=== PATIENT | female | born 1935 | race Caucasian/White ===

== ENCOUNTER 2017-05-27 02:01 | Inpatient (IN) | payer MEDICARE, BC ==
[~2017-05-27] VITALS: Ht 149.9 cm; Wt 69.0 kg
--- NOTE | ~2017-05-27 | HP ---
PATIENT'S NAME: ED HOU [facility] AGE: 82 Y [address] ROOM: [address] [address] LOCATION[facility] ADMIT DATE: 05/27/2017 History & Physical DISCHARGE DATE: FAMILY PHYSICIAN: PHYSICIAN, UNKNOWN ATTENDING PHYSICIAN: PATRICIA ESCOBEDO DATE OF SERVICE: CHIEF COMPLAINT: Chest pain, shortness of breath, diaphoresis, and palpitation with irregular heartbeat. HISTORY OF PRESENT ILLNESS: This is an 82-year-old female who says that last night around 10 p.m. while she was watching a movie she felt substernal chest pain about 8/10 intensity with radiation to bilateral shoulders associated with diaphoresis, dyspnea, and palpitations with sensation of irregular heartbeats. The patient's daughter was at home and gave her 1 full- dose aspirin but did not relieve any chest pain. Therefore, patient was brought to the emergency room at [facility]. Over there, EKG was performed and showed atrial fibrillation with RVR with heart rate of 137. Troponin, CPK, CK-MB, the first set was normal. The patient was given Cardizem bolus followed by drip and also was put on IV heparin drip and got 1 dose IV Lopressor 5 mg and was later sent over here for further care. On-call chief cook was already notified by the transfer facility's medical provider and plan will be managing her chest pain and atrial fibrillation with RVR at our facility. The patient states that she has never been diagnosed with any heart problems and never been told she has any heart failure, atrial fibrillation, myocardial infarction, or anything cardiac related except hypertension. She also denies ever having chest pain before. However, she did say that about roughly 2 weeks ago she had some insect bites and she was given prednisone for itchiness relief and she has been having intermittent plapitations of irregular heartbeats. She thinks that prednisone might be the trigger of those irregular heartbeats. REVIEW OF SYSTEMS: As mentioned in history of present illness. All other systems were reviewed and they were negative except those mentioned in the history of present illness. PAST MEDICAL HISTORY: 1. Hypertension. 2. Hyperlipidemia. [facility] A[facility]: 82 Y [address] ROOM: [address] [place], [place] [address] LOC[facility]: [facility] ADMIT DATE: 05/27/2017 History & Physical DISCHARGE DATE: FAMILY PHYSICIAN: PHYSICIAN, UNKNOWN ATTENDING PHYSICIAN: PATRICIA ESCOBEDO 3. Gastroesophageal reflux disease. 4. History of ovarian cancer, status post chemotherapy completed 4 years ago and she still has the port a cath on her left chest. ALLERGIES: PENICILLIN CAUSES HIVES, LEVAQUIN UNKNOWN REACTION, AND LATEX CAUSES ITCHINESS. HOME MEDICATIONS: Currently, it is being reconciled. The patient does take aspirin at home, baby dose, but she is not on any blood thinner. SOCIAL HISTORY: The patient denies any cigarette, alcohol, or any illegal drug use. FAMILY HISTORY: Father from myocardial infarction at age 60;s and mother at old age from unknwon cause and also had diabetes type 2. PAST SURGICAL HISTORY: Knee surgery and hysterectomy. PHYSICAL EXAMINATION: VITAL SIGNS: Temperature 98, heart rate 66, respirations 18, blood pressure 143/65, and saturation 95% on room air. GENERAL APPEARANCE: Alert and oriented x3, in no acute distress. HEENT: Pupils are equally round and reactive to light. Extraocular muscles intact. Anicteric sclerae. Nasal turbinates are normal bilaterally. Moist oral mucosa. NECK: No JVD. CARDIOVASCULAR: Regular rate and rhythm. No murmur, no rubs, no gallops. Normal S1, S2. RESPIRATORY: Clear. No rhonchi, no rales, no wheezing, no crackles. ABDOMEN: Soft, obese, nontender, nondistended, bowel sounds present, no mass. EXTREMITIES: No edema in upper or lower extremities. NEUROLOGIC: Grossly nonfocal. SKIN: No ulcer, no rash, no cyanosis. LABORATORY DATA: Troponin 0.055, pro-BNP 399, CPK 66, CK-MB 2.8. White blood cell 12.3, hemoglobin 14, hematocrit 40.4, platelet 163, glucose 106, BUN 23, and creatinine 0.8. Sodium 142, potassium 3.7, chloride 105, CO2 29, calcium 8.6, total protein 6.1, albumin 3.1, AST 16, ALT 28, alkaline phosphatase 61, total bilirubin 0.3, magnesium 1.9, anion gap 11.7, LDL 61, HDL 66, total cholesterol 144, and triglycerides 88. INR and PTT pending. Hemoglobin A1c PATIENT'S NAME: ED HOU [facility] AGE: 82 Y [address] ROOM: [address] [place] [address] LOCATION: [facility] ADMIT DATE: 05/27/2017 History & Physical DISCHARGE DATE: FAMILY PHYSICIAN: PHYSICIAN, UNKNOWN ATTENDING PHYSICIAN: PATRICIA ESCOBEDO pending. GFR 68. IMAGING STUDIES: 1. Chest x-ray on admission from the outside facility showed no acute infiltrate. Stable elevation of the right hemidiaphragm with possible trace right pleural effusion. Borderline cardiomegaly without overt signs of CHF. 2. EKG from the outside facility, the first one on May 27, 2017, at 12:21 a.m. show heart rate of 137, atrial fibrillation with RVR, and known specific ST-T wave related changes. QRS 74 milliseconds. 3. Repeat EKG at a later time on the same day at 1:45 a.m. still with atrial fibrillation with RVR, heart rate 101, QRS 78, still with some nonspecific ST changes. No obvious ST elevation. 4. Repeat EKG here in our facility on May 27, 2017, at 3:53 a.m. shows sinus rhythm, heart rate of 61 beats per minutes. MT 175 milliseconds, QRS 85 milliseconds, QTc 363 milliseconds. No acute ischemic changes. ASSESSMENT AND PLAN: 1. Chest pain from NSTEMI: Continue intravenous heparin drip per acute coronary syndrome protocol. Continue with p.o. Lopressor, p.o. aspirin, and p.o. Lipitor and if has chest pain, will start intravenous nitroglycerin drip. Echo in the morning. Cardiology consult in the morning. N.p.o. Intravenous fluids for hydration. I will also cycle cardiac enzymes every 6 hours and EKG in AM. 2. New onset atrial fibrillation with RVR: Continue intravenous heparin drip. I will control her atrial fibrillation with Cardizem bolus then drip if she goes back to atrial fibrillation with rvr. In the meantime, I will give her p.o. Lopressor 25 mg p.o. b.i.d.. In addition, I will add intravenous Lopressor p.r.n. for heart rate more than 110 if she goes into atrial fibrillation with rvr. Her [id number] score is high enough to warrant usp anticoagulation due to her age, female sex, and hypertension. For now, continue intravenous heparin drip and defer to Cardiology for choice of long-term anticoagulation. 3. Hypertension: Hold the home medication including amlodipine and also atenolol because we are doing the p.o. Lopressor for now. Continue home lisinopril with holding parameters. 4. Hyperlipidemia: Check lipid panel and change home pravastatin for atorvastatin in the setting of acute coronary syndrome. 5. Gastroesophageal reflux disease: Continue her home PATIENT'S NAME: ED HOU [facility] AGE: 82 Y [address] ROOM: [place] [address] LOC[facility] ADMIT DATE: 05/27/2017 History & Physical DISCHARGE DATE: FAMILY PHYSICIAN: PHYSICIAN, UNKNOWN ATTENDING PHYSICIAN: PATRICIA ESCOBEDO omeprazole 40 mg p.o. daily p.r.n.. Keep the potassium more than 4 and magnesium more than 2. 6. Deep vein thrombosis prophylaxis: She is on heparin drip. 7. She is a full code. Time spent in care on the day of admission 50 minutes spent, where 30 minutes spent on counseling, including going over plan of care in detail with patient and her family members and addressing all their questions and concerns to their satisfaction. The remainder of time was spent on chart review, interview, and physical examination. Further plan will depend on clinical course. PATRICIA ESCOBEDO MD CC/modl /[id number]: [id number] T: [id number] HISTORY & PHYSICAL
--- NOTE | ~2017-05-27 | DS ---
PATIENT'S NAME: ED HOU [facility] AGE: 82 Y [address] ROOM: [address] [place], [place] [address] LOCATION: [facility] ADMIT DATE: 05/27/2017 Discharge Summary DISCHARGE DATE: 05/28/2017 FAMILY PHYSICIAN: Tza Shoemaker MD ATTENDING PHYSICIAN: Flaquito Cross FINAL DIAGNOSES: 1. Atrial fibrillation with a rapid ventricular response. 2. Chest pain. 3. Essential hypertension. 4. Dyslipidemia. REASON FOR ADMISSION: The patient had presented to [place] with atrial fibrillation with a rapid ventricular response with associated chest pain and shortness of breath. She was transferred here for cardiac evaluation. LABORATORY DATA: On admission; her sodium was 142, potassium 3.7, chloride 105, CO2 29, BUN 23, creatinine 0.8. Her alkaline phosphatase was 61, AST 16, ALT 68, cholesterol 144, HDL 66, LDL 61. Her CK on admission was 66, MB 2.8, troponin was 0.055, proBNP 399. Her second troponin was 0.057. Hemoglobin A1c 6.7, TSH 1.7, free T4 1.1. White blood cell count on admit 12.3, hemoglobin 14, hematocrit 40.4, platelet count 163, protime 10.6, INR 1.01. RADIOLOGY DATA: Cardiovascular data and echocardiogram did show that her ejection fraction was 60% to 65%. She had grade 1 diastolic dysfunction, mildly dilated left atrium. Cardiac Lexiscan was read as negative for ischemia. HOSPITAL COURSE: The patient was accepted and transferred, admitted to PCU. She was started on IV heparin. An echocardiogram was obtained. She was started on low-dose Lopressor. Her heart rate was actually controlled at the time of admission. Cardiology was asked to see her and a decision was made to place her on sotalol 80 mg twice daily. It was felt that the chest pain required a stress test. She did undergo a Lexiscan stress test that did return negative. She had converted to sinus rhythm. It was felt that she should continue on the Betapace and a decision was made to place her on Eliquis. Her blood pressure on the night of the was elevated. She had miss her dose of Norvasc that morning and was restarted. On the morning of discharge, her blood pressure was much improved. She ambulated in the halls and felt fine. Decision was made to discharge her home. DISCHARGE INSTRUCTIONS/MEDICATIONS: 1. Eliquis 5 mg twice daily. 2. Pravachol 40 mg at bedtime. 3. Xalatan 1 drop each eye at bedtime. PATIENT'S NAME: ED HOU [facility] AGE: 82 Y [address] ROOM: [place] [address] [facility] ADMIT DATE: 05/27/2017 Discharge Summary DISCHARGE DATE: 05/28/2017 FAMILY PHYSICIAN: Taz Shoemaker MD ATTENDING PHYSICIAN: Flaquito Cross 4. Lopressor 12.5 mg twice daily. 5. Betapace 80 mg twice daily. 6. Amlodipine/benazepril 10/40 1 tablet daily. 7. PreserVision 1 tablet daily. 8. Omeprazole 40 mg daily. 9. Mag oxide 400 mg daily. 10. Lasix 20 mg daily as needed for swelling in her legs. 11. Os-Shiraz with D1 1 tablet daily. This was discussed with her primary care provider, Dr. Taz Shoemaker. She will see Dr. Taz Shoemaker tomorrow morning as already scheduled and will see Dr. Arredondo on June 09. DINH PETER MD LAW/modl /[id number] CC: MD Manish Webster MD d: 05/29/17 1143 t: 06/03/17 1934, DISCHARGE SUMMARY
--- NOTE | ~2017-05-27 | ESTC ---
Cardiac Perfusion Imaging Demographics Patient Name SAVI Santiago Gender Female Patient Number [id number] Race Visit Number [id number] Ethnicity Corporate ID Room Number G6312 Accession Number [id number] Height 59 inches Date of 1935 Weight 151 pounds Interpreting CHANCE Narvaez [place] Date of study 05/27/2017 Physician Abbey Waldrop MD Supervising /ROSITA ARZATE Technologist Laurel Rhoades Ordering Physician Stress automotive service technician Stress ECG Reading Trang Nurse Yousuf Peters RN Physician Jf Rdedy RN Medications Reviewed with Patient prior to Procedure. Procedure Admit Source:Emergency department. Procedure Type: Nuclear Stress Test:Pharmacological, Lexiscan, Cardiolite Stress Test Procedure Start time: 05/27/2017 00:00 Indications: Atrial Fibrillation w/ RVR. Risk Factors The patient risk factors include:former tobacco use, treated hypercholesterolemia, treated hypertension, diet treated diabetes mellitus and dyslipidemia. Conclusions Impression ECG portion of lexiscan stress test is clinically negative for ischemia by diagnostic criteria. Myocardial perfusion imaging is essentially normal. Overall left ventricular systolic function was normal without regional wall motion abnormalities. Calculated LVEF is 78% and TID ratio is 1.16. There are no previous studies for comparison. Stress Protocols Resting ECG sinus bradycardia, non specific T wave abnormality Pre-stress physical exam: Patient assessed by Dr Costello prior to testing. Predicted HR: 136 bpm ECG Findings No ECG changes suggestive of ischemia. Arrhythmias No rhythm abnormality. Symptoms Nausea, palpitations Stress Interpretation ECG portion of stress test is negative for ischemia by diagnostic criteria. Nuclear images are pending. Imaging Results Applied corrections - Motion correction applied High risk findings Summed scores - Summed stress score: 1 - Summed rest score: 3 - Summed difference score: -2 Stress ejection Ejection fraction:78 % EDV :54 ml ESV :12 ml Stroke volume :42 ml LV mass :90 gr Imaging Protocols Rest Stress Isotope:Tc99m Sestamibi IV Isotope: Tc99m Sestamibi IV Isotope dose:12.4 mCi Isotope dose:38.7 mCi Date:05/27/2017 10:12 Date:05/27/2017 12:22 Technique: SPECT Technique: Gated Supine SPECT Supine IV remains in place after procedure. Scan Time:45-60 minutes post injection Procedure Medications - Regadenoson (Lexiscan) 0.4 mg IV over 10-15 sec. I.V. 0.4 mg. Medications administered per verbal order and read back to physician prior to administration. Medical History Admission Data Admission date: 05/27/2017 Admission Time: 03:24 Hospital Status: Inpatient. Signatures dtt: KIARA GORE dtd: 05/27/17 0000 Physician Self Edit
--- NOTE | ~2017-05-27 | ECHO ---
Transthoracic Echocardiography Report (TTE) Demographics Patient Name ED HOU Date of Study 05/27/2017 Patient Number [id number] Visit Number [id number] Date of 1935 Room Number G6312 Accession Number [id number] Gender Female Age 82 year(s) Referring Maria Elena Hammond MD Sales Representative [employer] Mayela Jameson [facility], Physician America Cristobal MD RVT Physician Interpreting Abbey Waldrop In House Cra Physician Supervising Ordering Physician Maria Elena Hammond MD, MD/P Nurse Stress Marker Shipments Conclusions Summary Normal LV/RV size and systolic function. The estimated left ventricular ejection fraction is 60-65%. Diastolic assessment reveals Grade I diastolic dysfunction. The left atrium is moderately dilated. There is mild pulmonary hypertension. The pulmonary pressure (RVSP) is 35 mmHg. Trivial tricuspid regurgitation by color Doppler. Procedure Type of Study TTE procedure:2D Echocardiogram. Procedure Date Date: 05/27/2017 Start: 07:29 AM Study Location: Inpatient Portable Technical Quality: Adequate visualization Indications:Chest pain. Additional Indications:atrial fiberlation rvr Appropriate Use Criteria: 9 Patient Status: Routine Rhythm: Sinus bradycardia HR: 57 bpm BP: 177/80 mmHg M-Mode/2D Measurements LV Diastolic Dimension: 4.6 cm LV Systolic Dimension: 3.04 cm LV Septum Diastolic: 1.05 cm LV PW Diastolic: 1 cm AO Root Dimension: 2.1 cm Cardiac Output: 5.35 l/min AV Cusp Separation: 1.9 cm RV Diastolic Dimension: 2.48 cm LA volume: 49 ml IVC Inspiration: 0.4 cm LVOT: 2.1 cm RV Base: 3.52 cm LVOT VTI: 27.1 cm RV Mid: 2.34 cm LV Stroke volume: 93.82 ml TAPSE: 2.33 cm TDI-S': 12 cm/s Doppler Measurements AV Peak Velocity: 1.42 m/s MV Peak E-Wave: 0.71 m/s AV Peak Gradient: 8.07 mmHg MV Peak A-Wave: 1.05 m/s AV Mean Gradient: 5 mmHg MV E/A Ratio: 0.68 LVOT Peak Velocity: 1 m/s MV P1/2t: 112 msec TR Gradient:32.04 mmHg PV Peak Velocity: 0.72 m/s Estimated RAP:3 mmHg PV Peak Gradient: 2.09 mmHg Estimated RVSP: 35 mmHg Estimated PASP: 35.04 mmHg E' Septal Velocity: 0.04 m/s A' Septal Velocity: 0.08 m/s E' Lateral Velocity: 0.05 m/s A' Lateral Velocity: 0.09 m/s MV E/E' Ratio: 17 Findings Left Ventricle The estimated left ventricular ejection fraction is 60-65%. Diastolic assessment reveals Grade I diastolic dysfunction. Right Ventricle Normal right ventricle structure and function. Left Atrium The left atrium is moderately dilated. Right Atrium Normal right atrial size. Mitral Valve Trivial mitral regurgitation by color Doppler. Mild to moderate mitral annular calcification. Aortic Valve The aortic valve is mildly, moderately sclerotic. Tricuspid Valve There is mild pulmonary hypertension. The pulmonary pressure (RVSP) is 35 mmHg. Trivial tricuspid regurgitation by color Doppler. Pulmonic Valve Trivial pulmonic valve regurgitation by color Doppler. Pericardial Effusion No evidence of pericardial effusion. Miscellaneous Visualized portions of the aortic root and ascending aorta appear normal in size. Pleural Effusion No evidence of pleural effusion. Contractility Score LV regional wall motion:(0-Non visualized 1-Normal 2-Hypokinesis 3-Akinesis 4-Dyskinesis 5-Aneurysm) Signature dtt: KIARA GORE dtd: 05/27/17 0729 Physician Self Edit
--- NOTE | ~2017-05-27 | CON ---
PATIENT'S NAME: [facility] AGE: 82 Y [address] ROOM: [address] [id number] LOCATION: GPCU ADMIT DATE: 05/27/2017 Consultation DISCHARGE DATE: 05/28/2017 FAMILY PHYSICIAN: Taz Shoemaker MD ATTENDING PHYSICIAN: Flaquito Cross REFERRING PHYSICIAN: Manish Duff MD CARDIOLOGY CONSULTATION REFERRING PHYSICIAN: Flaquito Cross MD FAMILY PHYSICIAN: Taz Shoemaker MD REASON FOR CONSULTATION: New-onset atrial fibrillation. HISTORY OF PRESENT ILLNESS: This is an 82-year-old, white female, who was in her usual state of health and feeling well. She had just gotten done watching family members bowl and they had gone home to sit down and watch a movie. She had a sudden onset of substernal chest pressure, rating an 8/10 with bilateral shoulder discomfort down her left arm as well as some diaphoresis. She also had some palpitations and a sensation of irregular beat. Her daughter who is an RN came over to evaluate her. She received aspirin and then was taken to the emergency room. Her EKG showed that she was in atrial fibrillation with a rapid ventricular response. Her initial cardiac enzymes showed a troponin of 0.055 with a CK-MB of 2.8. She was given a Cardizem bolus and started on heparin. She also received Lopressor IV. She was then transferred to [facility] for further evaluation. After her transfer, she remained in atrial fibrillation. Rates were a little bit better controlled. Her chest pain was completely resolved. She denies any further episodes of palpitations. She denies any exertional chest heaviness or tightness or shortness of breath. There has been no report of orthopnea, PND, or pedal edema. PAST MEDICAL HISTORY: 1. New-onset atrial fibrillation, 05/27/2017. 2. History of frequent urinary tract infections. 3. Stress incontinence. 4. Hypertension. 5. Ovarian cancer. 6. Basal cell carcinoma removed from the thigh and the back. 7. She was recently treated for jiggers with prednisone. 8. 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 9. Essential hypertension. PATIENT'S NAME: [facility] AGE: 82 Y [address] ROOM: [id number] [place] [id number] LOCATION: GPCU ADMIT DATE: 05/27/2017 Consultation DISCHARGE DATE: 05/28/2017 FAMILY PHYSICIAN: Taz Shoemaker MD ATTENDING PHYSICIAN: Flaquito Cross 10. Hyperlipidemia. 11. History of bronchitis, 03/2017. 12. Arthritis. 13. History of heartburn. PAST SURGICAL HISTORY: 1. Left breast biopsy. 2. Hysterectomy due to ovarian cancer, receiving chemotherapy. 3. Bilateral knee replacement. 4. Bilateral cataract surgery in November 2016. 5. She has had a Port-A-Cath placed that is still present. SOCIAL HISTORY: She is a former smoker. She smoked 1/2 pack cigarettes a day for five years and quit in 1984. She does not use much in the form of alcohol. FAMILY HISTORY: Mother had depression, diabetes, and glaucoma. She did of suicide. Father of myocardial infarction. He has also had a TIA. He was 69. She has a sister with glaucoma as well as thyroid disease. REVIEW OF SYSTEMS: GENERAL: She denies any complaints of fatigue. HEENT: No history of headaches. Eyes; she has cataract surgery. Nose; no epistaxis or rhinorrhea. Mouth; no gingival bleeding. Throat; denies sore throat, hoarseness, or difficulty swallowing. Ears; she is deaf in her right ear. PULMONARY: Denies cough or hemoptysis. She recently was treated for bronchitis, 03/2017. GASTROINTESTINAL: Negative for nausea, vomiting, or diarrhea. No melena or hematochezia. GENITOURINARY: Negative for urinary frequency or urgency. She does have problems with stress incontinence and frequent urinary tract infections. MUSCULOSKELETAL: She has generalized arthritis. NEUROLOGIC: No TIA or CVA symptomatology. PHYSICAL EXAMINATION: VITAL SIGNS: She is 4 feet 11 inches, weight is 151 pounds, and her BMI is 30.5. Blood pressures are in the 130s over 70s to 140s over 80s. Heart rate is in 90s. GENERAL APPEARANCE: On exam, this is a very pleasant female, who appears to be in no acute distress. SKIN: Warm, dry, and pink. HEENT: Pupils are equal. NECK: Soft and supple. No lymphadenopathy. PATIENT'S NAME: [facility] AGE: 82 Y [address] ROOM: [id number] [place] [id number] [facility] AD[facility] DATE: 05/27/2017 Consultation DISCHARGE DATE: 05/28/2017 FAMILY PHYSICIAN: Taz Shoemaker MD ATTENDING PHYSICIAN: Flaquito Cross CARDIOVASCULAR: Regular. Now she is in a normal sinus rhythm. ABDOMEN: Soft. Bowel sounds are present. EXTREMITIES: No peripheral edema. No clubbing. No cyanosis. LABORATORY DATA: Labs: TSH was 1.7 and free T4 of 1.1. Cholesterol 144, triglycerides were 88, HDL 66, LDL was 61, and hemoglobin A1c was 6.7. BUN was 23, creatinine 0.8, sodium 142, potassium 3.7, and magnesium was 1.9. White count 12.3, hemoglobin 14.0, hematocrit 40.4, and platelets are 143,000. ASSESSMENT AND PLAN: 1. New-onset atrial fibrillation, paroxysmal, now in a normal sinus rhythm. We will check an echocardiogram. She will be started on sotalol 80 mg p.o. b.i.d. We will check her creatinine clearance and possibly start her on NOAC therapy. If her echocardiogram shows wall-motion abnormality, we will plan for a heart catheterization. If it is negative for that we will stress her. The assessment and plan, history of present illness, and physical examination are per Dr. Duff. Further recommendations will be forthcoming. RACHELL BECERRA APRN FOR [facility] DUFF MD TGP/debbie /[id number] d: 05/28/17 1530 t: 06/09/17 1001, CONSULTATION REPORT
[2017-05-27] MEDS ORDERED: AMLODIPINE-BEN1 EAC1 PO (04:16)
[2017-05-27] MEDS ORDERED: TENORMIN50 MG PO (04:17)
[2017-05-27] MEDS ORDERED: PRESERVISION A1 EAC1 PO (04:20)
[2017-05-27] MEDS ORDERED: XALATAN2.5 ML OPHTH (04:22)
[2017-05-27] MEDS ORDERED: PRAVACHOL40 MG PO (04:23)
[2017-05-27] MEDS ORDERED: DELTASONE10 MG PO (04:24)
[2017-05-27] MEDS ORDERED: OSCAL + D500 MG PO (04:26)
[2017-05-27] MEDS ORDERED: OMEPRAZOLE40 MG PO (04:27)
[2017-05-27] MEDS ORDERED: MAG-OX-400(241400 MG PO (04:29)
--- NOTE | 2017-05-27 05:05 | NUR ---
PATIENT ARRIVED TO FLOOR VIA AMBULANCE FROM [facility]. VSS. RIGHT HAND IV AND LEFT CHEST PORT BOTH SL. NO C/O CHEST PAIN UPON ADMISSION. ACCORDING TO PATIENT, SHE STARTED TO EXPERIENCE CHEST PAIN YESTERDAY EVEN WHILE SHE WAS SITTING DOWN. SHE BELIEVED THIS WAS R/T HER FEELING OF HAVING A RACING HEART. SHE WAITED FOR SHE THOUGHT IT MIGHT BE THE ONSET OF INDIGESTION BUT DECIDED TO COME IN SHORTLY AFTER WHEN IT HADN'T SUBSIDED. ALONG WITH CHEST PAIN/RACING HEART SHE ALSO HAD LIGHTHEADEDNESS, DIZZINESS, AND SHORTNESS OF BREATH. EKG IN [facility] SHOWED NEW ONSET AFIB WITH RVR. HEPARIN AND AMIODARONE STARTED THERE. HEPARIN CONTINUED AND PATIENT WAS IN NSR WHEN ARRIVED TO FLOOR SO AMIODARONE D/C'D WHEN PHYSICIAN NOTIFIED OF PATIENT ARRIVAL TO FLOOR. PATIENT HAS PAST MEDICAL HISTORY OF HTN, HYPERLIPIDEMIA, OVARIAN CANCER DIAGNOSED 4 YEARS AGO WITH LAST CHEMO TREATMENT ABOUT 4 YEARS AGO, INNER EAR PROBLEMS CAUSING SOME DIZZINESS AND DIABETES TYPE 2. FAMILY AWARE OF PATIENT'S ADMISSION TO THE FLOOR.
[2017-05-27 05:17] LABS: BASOPHIL % 0.2 %; EOSINOPHIL # 0.2 K/uL (0.0-0.5); EOSINOPHIL % 1.3 %; HEMATOCRIT 40.4 % (30.0-46.0); IMMATURE GRANULOCYTE # 0.2 K/uL (0.0-0.3); IMMATURE GRANULOCYTE % 1.5 %; LYMPHOCYTE # 2.2 K/uL (0.8-4.0); LYMPHOCYTE % 18.3 %; MCH 30.2 pg (27.0-34.0); MCHC 34.7 gm/dL (32.0-36.5); MCV 87.3 fl (83.0-98.0); MONOCYTE # 0.7 K/uL (0.0-1.0); MONOCYTE % 5.9 %; NEUTROPHIL # (ANC) 8.9 K/uL (1.8-7.8); NEUTROPHIL % 72.8 %; NRBC % 0 /100WBC (0-0.00); PLATELET COUNT 163 K/uL (150-450); RBC 4.63 M/uL (3.00-5.00); RDW-CV 13.2 % (11.9-14.6); WBC 12.3 K/uL (4.0-11.0)
[2017-05-27 05:31] LABS: ALBUMIN 3.1 gm/dL (3.5-5.0); ANION GAP 11.7 (10.0-19.0); CALCIUM 8.6 mg/dL (8.5-10.5); CREATININE 0.8 mg/dL (0.5-1.1); MAGNESIUM 1.9 mg/dL (1.8-2.6); POTASSIUM 3.7 mMol/L (3.7-5.1); TOTAL BILIRUBIN 0.3 mg/dL (0.0-1.5); TOTAL PROTEIN 6.1 g/dL (6.0-8.4)
[2017-05-27 05:40] LABS: INR - (THERAPEUTIC) 1.01 (0.92-1.07); PROTIME 10.6 SECONDS (9.8-11.4)
[2017-05-27 05:42] LABS: PTT 180 SECONDS (25-32)
[2017-05-27] MEDS ORDERED: LASIX20 MG PO (07:42)
--- NOTE | 2017-05-27 15:58 | NUR ---
Introduced self and care management services to patient and children at bedside. Lives in [place]. Independent at home. Says her husbands daughter is staying with her right now so will have some help at home when she goes home. Denies needs. Will follow.
--- NOTE | 2017-05-27 16:38 | NUR ---
Significant Event: A/Ox3. SBP-170s. P-50-60s. SR/SB. Afebrile. Room air. Patient denies CP and SPB. L) chest port running D5in NS at 50ml/hr. R) hand IV infusing heparin at 900ml/hr. Patient had echo done this AM, no significant findings. Stress test done and was negative. Patient will possibly discharge home tomorrow.
--- NOTE | 2017-05-28 04:51 | NUR ---
Patient is A/O X3. Lung sounds are clear on RA and bowel sounds present. VSS. No c/o pain. Left chest port running D5in NS at 50ml/hr. SLIV in right hand. SBA. Regular diet. Home today.
[2017-05-28] MEDS ORDERED: ELIQUIS5 MG PO (11:37)
[2017-05-28] MEDS ORDERED: BETAPACE (GENER80 MG PO (11:41)
[2017-05-28] MEDS ORDERED: LOPRESSOR25 MG PO (11:41)
--- NOTE | 2017-05-28 14:14 | NUR ---
Discharge Note: VSS ON RA. PT GIVEN INSTRUCTIONS, NEW MEDICATION TEACHING, ATRIAL FIBRILLATION TEACHING. PT VERBALIZED UNDERSTANDING. VACCINATIONS UP TO DATE.
== END 2017-05-28 14:10 | disposition disaster alternative care site (69) | DRG 282 ==
LOC: GPCU 02:01
PROVIDERS: ADMIT Internal Medicine
DX: I21.4 Non-ST elevation (NSTEMI) myocardial infarction (principal); I48.91 Unspecified atrial fibrillation; I10 Essential (primary) hypertension; E78.5 Hyperlipidemia, unspecified; K21.9 Gastro-esophageal reflux disease without esophagitis; Z92.21 Personal history of antineoplastic chemotherapy; Z85.43 Personal history of malignant neoplasm of ovary; Z79.82 Long term (current) use of aspirin; Z96.653 Presence of artificial knee joint, bilateral
CPT/HCPCS: A9500; J1642; J1644; J2785; J3475; J7042

== ENCOUNTER → 2017-05-27 | Outpatient (CLI) | payer MEDICARE, BC ==
[~2017-05-27] MED LIST: AMLODIPINE-BEN1 EAC1 PO; BETAPACE (GENER80 MG PO; DELTASONE10 MG PO; ELIQUIS5 MG PO; LASIX20 MG PO; LOPRESSOR25 MG PO; MAG-OX-400(241400 MG PO; OMEPRAZOLE40 MG PO; OSCAL + D500 MG PO; PRAVACHOL40 MG PO; PRESERVISION A1 EAC1 PO; TENORMIN50 MG PO; XALATAN2.5 ML OPHTH
== END | disposition disaster alternative care site (69) ==
LOC: GAMB 02:52
DX: I49.9 Cardiac arrhythmia, unspecified (principal); I48.91 Unspecified atrial fibrillation; E78.5 Hyperlipidemia, unspecified; E11.9 Type 2 diabetes mellitus without complications; I10 Essential (primary) hypertension; Z85.43 Personal history of malignant neoplasm of ovary; Z79.52 Long term (current) use of systemic steroids; Z79.899 Other long term (current) drug therapy; Z88.0 Allergy status to penicillin
CPT/HCPCS: A0425; A0426